=== PATIENT | female | born 1990 | race Hispanic/Latino ===

== ENCOUNTER 2017-09-11 08:35 | Outpatient (CLI) | payer OTHER | END 2017-09-11 08:36 | disposition home or self-care (01) | LOC: DTY/OP 08:35 | PROVIDERS: ATTEND Surgery | DX: E66.01 Morbid (severe) obesity due to excess calories (principal) | CPT/HCPCS: 97802 ==

== ENCOUNTER 2017-10-22 10:47 | Outpatient (CLI) | payer BC ==
--- NOTE | 2017-10-22 13:27 | RAD ---
CHEST TWO VIEWS: HISTORY: A 27-year-old female with a history of a preoperative evaluation. FINDINGS: Inspiration is somewhat less than optimal. Heart size is within normal limits. Large body habitus l owers the sensitivity of the study. No confluent pneumonia, overt edema, or pleural effusion. IMPRESSION: No acute intrathoracic disease. POS: [facility]
[2017-10-22 14:14] LABS: #Eosinphils 0.1 thou/uL (0.0-0.7); #Lymphocytes 2.6 thou/uL (1.20-3.40); #Monocytes 0.5 thou/uL (0.11-0.59); #Neutrophils 4.6 thou/uL (1.40-6.50); %Basophils 0.5 % (0.0-1.0); %Eosinophils 1.6 % (0.0-10.0); %Lymphocytes 33.1 % (21.0-51.0); %Neutrophils 58.9 % (42.0-75.0); BHCG - Serum Negative (NEGATIVE); Hemoglobin 13.5 g/dL (12.0-16.0); Mean Corpuscular HGB CONC 33.1 g/dL (32.0-36.0); Mean Corpuscular Hemoglobin 27.9 pg (27.0-31.0); Mean Corpuscular Volume 84.2 fl (81.0-99.0); Mean Platelet Volume 7.1 fL (7.4-10.4); Platelet Count 276 thou/uL (130-400); Pregs Control Background? CLEAR/WHITE (CLR/WHITE); Pregs Control Bar Appear? YES (CONTROL BAR); RBC Distribution Width 12.9 % (11.5-14.5); Red Blood Cell (RBC) Count 4.83 mill/uL (4.20-5.40); White Blood Cell (WBC) Count 7.7 thou/uL (4.8-10.8)
[2017-10-22 14:35] LABS: ALT (SGPT) 38 U/L (8-55); AST (SGOT) 29 U/L (5-34); Albumin 4.4 g/dL (3.5-5.0); Alkaline Phosphatase 66 U/L (40-150); Anion Gap 15 mmol/L (10-20); BUN (Urea Nitrogen) 12 mg/dL (7.0-18.7); Bilirubin, Direct 0.2 mg/dL (0.1-0.3); Bilirubin, Total 0.4 mg/dL (0.2-1.2); Calc. Creatinine Clearance 0 mL/min (70-130); Calcium 8.9 mg/dL (7.8-10.44); Carbon Dioxide 21 mmol/L (22-29); Chloride 107 mmol/L (98-107); Estimated GFR-MDRD Greater than 90; Globulin 3.3 g/dL (2.4-3.5); Glucose 74 mg/dL (70-105); Potassium 4.3 mmol/L (3.5-5.1); Protein, Total 7.7 g/dL (6.0-8.3); Sodium 139 mmol/L (136-145)
[2017-10-22 14:38] LABS: Hemoglobin A1c 5.5 % (4.0-6.0)
--- NOTE | 2017-10-22 16:41 | EKG ---
Test Reason : Blood Pressure : / mmHG Vent. Rate : 056 BPM Atrial Rate : 056 BPM P-R Int : 162 ms QRS Dur : 090 ms QT Int : 414 ms P-R-T Axes : 037 045 014 degrees QTc Int : 399 ms Sinus bradycardia with sinus arrhythmia Otherwise normal ECG No previous ECGs available Confirmed by DR. Dayanna JOSEPH ([id number]) on 10/22/2017 4:41:15 PM Referred By: SHONA Confirmed By:DR. Dayanna JOSEPH
== END 2017-10-22 10:48 | disposition home or self-care (01) ==
LOC: LABBT 10:47
PROVIDERS: ATTEND Surgery
DX: Z01.818 Encounter for other preprocedural examination (principal); E66.01 Morbid (severe) obesity due to excess calories
CPT/HCPCS: 71046; 80053; 80076; 83036; 84703; 85025; 93005; 93010

== ENCOUNTER 2017-10-22 11:30 | Inpatient (IN) | payer BC ==
[2017-10-22 11:10] VITALS: BMI 47.5
[2017-10-31] MEDS ORDERED: Scopolamine 1.5 mg/72 hour Patch ONE (07:35)
[2017-10-31] MEDS ORDERED: Heparin 5,000 UNITS/ML VIAL ONE (07:35)
[2017-10-31] MEDS ORDERED: Levofloxacin 500 mg/D5W 100 ml Premix Bag ONE (07:36)
[2017-10-31] MEDS ORDERED: Bupivacaine/Epinephrine 0.25% 30 ML VIAL ONE (09:08)
[2017-10-31] MEDS ORDERED: Fentanyl 100 MCG/2 ML VIAL ONE (09:27)
[2017-10-31] MEDS ORDERED: Midazolam HCl 2 mg/2 ml Vial ONE ×2 (09:27→09:28)
[2017-10-31] MEDS ORDERED: Lidocaine 1% (PF) 30 ML VIAL ONE (09:28)
[2017-10-31] MEDS ORDERED: HYDROmorphone 0.5 MG/0.5 ML SYRINGE ONE (09:28)
[2017-10-31] MEDS ORDERED: Ondansetron HCl/PF 4 MG/2 ML Vial ONE ×2 (09:51→14:19)
[2017-10-31] MEDS ORDERED: Naloxone HCl 0.4 mg/ml Vial IV PRN ×2 (10:33→10:44)
[2017-10-31] MEDS ORDERED: Zolpidem Tartrate 5 MG TAB PO PRN ×2 (10:33→10:44)
[2017-10-31] MEDS ORDERED: diphenhydrAMINE 25 MG CAP PO PRN ×2 (10:33→10:44)
[2017-10-31] MEDS ORDERED: HYDROmorphone 2 MG/ML VIAL SLOW IVP PRN (10:33)
[2017-10-31] MEDS ORDERED: HYDROmorphone 10 mg/100 ml CADD IVPB PRN (10:33)
[2017-10-31] MEDS ORDERED: Promethazine HCl 25 MG/ML VIAL IM PRN ×5 (10:33→10:57)
[2017-10-31] MEDS ORDERED: Promethazine HCl 25 MG/ML VIAL SLOW IVP PRN ×2 (10:33→10:44)
[2017-10-31] MEDS ORDERED: diphenhydrAMINE 50 MG/ML VIAL IVP PRN ×3 (10:33→10:57)
[2017-10-31] MEDS ORDERED: Ondansetron HCl/PF 4 MG/2 ML Vial IVP PRN ×5 (10:33→10:57)
[2017-10-31] MEDS ORDERED: diphenhydrAMINE 50 MG/ML VIAL IM PRN ×2 (10:33→10:44)
[2017-10-31] MEDS ORDERED: Communication Order-Pharmacy FS SCH ×2 (10:45)
[2017-10-31] MEDS ORDERED: hydrALAZINE 20 MG/ML VIAL SLOW IVP PRN (10:57)
[2017-10-31] MEDS ORDERED: Dextrose 5% in Water 1,000 ML IV PRN (10:57)
[2017-10-31] MEDS ORDERED: Dextrose 50% Abboject 50 ML SYRINGE SLOW IVP PRN (10:57)
[2017-10-31] MEDS ORDERED: Hydrocodone-Acetamin 15 ML UDCUP PO PRN (10:57)
[2017-10-31] MEDS ORDERED: Meperidine HCl/PF 25 MG/ML VIAL ONE (11:29)
--- NOTE | 2017-10-31 11:55 | OP ---
DATE OF PROCEDURE: 10/31/2017 PREOPERATIVE DIAGNOSIS: Morbid obesity. SURGEON: Jl Desai M.D. PROCEDURE PERFORMED: Laparoscopic sleeve gastrectomy and esophagogastroscopy. INDICATIONS: A 27-year-old female, morbidly obese, who has attempted multiple weight loss programs w [facility]. FINDINGS: A 38-Mongolian bougie used. PROCEDURE IN DETAIL: After informed consent was obtained, the patient was taken to the operating denise m and given general endotracheal anesthesia. She was placed in the supine position. The abdomen was prepped and draped in the usual fashion. Local anesthesia infiltrated subcutaneously and deep and a 12-mm incision was performed approximately 8 inches below the xiphoid slightly to the left. Veress needle inserted. Drop test performed. Pneumoperitoneum was created to a pressure of 15 mmHg. The p atient was placed in steep reverse Trendelenburg position. Nathansen liver retractor inserted. Left lobe of liver retracted superiorly. Pylorus identified. A 12-mm port placed on the right beneath i t and two 12s placed left subcostal. The omentum was taken off the greater curvature 5 cm from the p ylorus utilizing the LigaSure. Short gastrics divided with the LigaSure and left crura defined with the LigaSure. A 38-Mongolian bougie inserted, directed into the antrum. Then, the antrum was divided u tilizing a 60-mm green load stapler. Then, a gold load was used along the bougie and a series of judy es through the angle of His. Intraoperative endoscopy was performed. The video endoscope inserted u nder direct vision and advanced into the sleeve. Staple line inspected. There was no bleeding. Sta ple line then tested by inflating the new stomach with pressurized air under water. There was no air leak. Stomach decompressed. Scope removed. The remnant stomach removed from the abdomen through t he left lateral port site. The fascia closed with 0 Vicryl suture and the GraNee needle. Trocars an d retractors removed. Skin closed with interrupted 4-0 Rapide. Dermabond applied. The patient tolbobo rated the procedure well and was transferred to recovery in good condition. Sponge and needle count verified correct x2.
[2017-10-31] MEDS ORDERED: Acetaminophen 1,000 MG in Premix Bag 1 BAG IVPB SCH (12:00)
[2017-10-31] MEDS ORDERED: D5 1/2 NS w/20 mEq KCL 1,000 ML ONE (12:24)
[2017-10-31] MEDS ORDERED: Glycopyrrolate 0.2 MG/ML 5 ML SYRINGE ONE (14:19)
[2017-10-31] MEDS ORDERED: Lidocaine 1% PF 5 ML VIAL ONE (14:19)
[2017-10-31] MEDS ORDERED: PROPOFOL 200 MG/20 ML VIAL ONE (14:19)
[2017-10-31] MEDS ORDERED: Dexamethasone 20 MG/5 ML VIAL ONE (14:19)
[2017-10-31] MEDS ORDERED: PHENYLEPHRINE-NS 100 MCG/ML 10 ML SYRINGE ONE (14:19)
[2017-10-31] MEDS ORDERED: Ketorolac Tromethamine 30 MG/ML VIAL ONE (14:19)
[2017-10-31] MEDS: D5 1/2 NS w/20 mEq KCL 1,000 ML IV SCH (16:55)
[2017-10-31] MEDS: Acetaminophen 1,000 MG in Premix Bag 1 BAG IVPB SCH ×2 (16:56→19:02)
[2017-10-31] MEDS: Ketorolac Tromethamine 30 MG/ML VIAL IVP SCH ×2 (16:56→19:02)
[2017-11-01] MEDS: Acetaminophen 1,000 MG in Premix Bag 1 BAG IVPB SCH ×3 (00:19→13:24)
[2017-11-01] MEDS: Ketorolac Tromethamine 30 MG/ML VIAL IVP SCH ×3 (00:20→13:23)
[2017-11-01] MEDS: D5 1/2 NS w/20 mEq KCL 1,000 ML IV SCH ×3 (00:23→13:24)
[2017-11-01 05:57] LABS: #Lymphocytes 1.7 thou/uL (1.20-3.40); #Monocytes 0.6 thou/uL (0.11-0.59); #Neutrophils 10.2 thou/uL (1.40-6.50); %Basophils 0.1 % (0.0-1.0); %Lymphocytes 13.7 % (21.0-51.0); %Neutrophils 81.1 % (42.0-75.0); Hemoglobin 12.6 g/dL (12.0-16.0); Mean Corpuscular HGB CONC 33.6 g/dL (32.0-36.0); Mean Corpuscular Hemoglobin 28.5 pg (27.0-31.0); Mean Corpuscular Volume 84.6 fl (81.0-99.0); Mean Platelet Volume 6.8 fL (7.4-10.4); Platelet Count 266 thou/uL (130-400); Red Blood Cell (RBC) Count 4.44 mill/uL (4.20-5.40); White Blood Cell (WBC) Count 12.5 thou/uL (4.8-10.8)
[2017-11-01 06:27] LABS: Anion Gap 10 mmol/L (10-20); BUN (Urea Nitrogen) 6 mg/dL (7.0-18.7); Calc. Creatinine Clearance 306 mL/min (70-130); Calcium 8.8 mg/dL (7.8-10.44); Carbon Dioxide 23 mmol/L (22-29); Chloride 106 mmol/L (98-107); Estimated GFR-MDRD Greater than 90; Glucose 120 mg/dL (70-105); Potassium 4.1 mmol/L (3.5-5.1); Sodium 135 mmol/L (136-145)
[2017-11-01] MEDS ORDERED: Enoxaparin Sodium 40 MG/0.4 ML SYRINGE SC SCH (09:00)
[2017-11-01] MEDS ORDERED: Pantoprazole 40 MG VIAL IVP SCH (09:00)
--- NOTE | 2017-11-01 09:38 | RAD ---
ESOPHAGRAM: Date: 11/01/17 HISTORY: Obesity. Bariatric surgery. FINDINGS/IMPRESSION: Single column contrast evaluation shows postoperative changes consistent with recent gastric sleeve p rocedure. Minimal delay in passage of contrast is consistent with mild postoperative swelling. There is no evidence of obstruction or leak. POS: [facility]
--- NOTE | 2017-11-01 11:27 | DIS ---
DISCHARGE DIAGNOSIS: Morbid obesity. PROCEDURES DURING ADMISSION: Laparoscopic sleeve gastrectomy, intraoperative esophagogastroscopy, po stoperative Gastrografin swallow. HOSPITAL COURSE: The patient was admitted, taken to the operating room where she underwent sleeve ga strectomy. Postoperatively, has done well. She is tolerating liquids well. X-ray was fine. She is discharged home in good condition on hydrocodone, Zofran. She will follow up with me in 2 weeks.
[2017-11-01 15:46] VITALS: BP 115/74; TEMP 98
== END 2017-11-01 15:50 | disposition home or self-care (01) | DRG 621 ==
LOC: SURG A 10-31 06:48 → SURG B 10-31 13:58
PROVIDERS: ADMIT Surgery; ATTEND Surgery
PROC: 0DB64Z3 Excision of Stomach, Percutaneous Endoscopic Approach, Vertical (ICD-10-PCS; principal; 2017-10-31)
DX: E66.01 Morbid (severe) obesity due to excess calories (principal); Z68.42 Body mass index [BMI] 45.0-49.9, adult
CPT/HCPCS: 36415; 74241; 80048; 85025; 88307; 88312; 94760; C9113; J0131; J1100; J1170; J1644; J1650; J1885; J1956; J2001; J2175; J2250; J2405; J2704; J3010

== ENCOUNTER 2018-08-04 21:31 | Emergency (ER) | payer BC ==
[2018-08-04] MEDS ORDERED: Ketorolac Tromethamine 30 MG/ML VIAL ONE (22:46)
[2018-08-04] MEDS ORDERED: Ondansetron PF 4 MG/2 ML Vial ONE (22:46)
[2018-08-04] MEDS ORDERED: Loperamide HCl 2 MG CAP ONE (22:46)
[2018-08-04 22:48] LABS: #Basophils 0.1 thou/uL (0.0-0.2); #Eosinphils 0.2 thou/uL (0.0-0.7); #Lymphocytes 1.7 thou/uL (1.20-3.40); #Monocytes 0.7 thou/uL (0.11-0.59); #Neutrophils 11.7 thou/uL (1.40-6.50); %Basophils 0.6 % (0.0-1.0); %Eosinophils 1.1 % (0.0-10.0); %Lymphocytes 11.7 % (21.0-51.0); %Neutrophils 81.7 % (42.0-75.0); Hemoglobin 12.9 g/dL (12.0-16.0); Mean Corpuscular HGB CONC 34.1 g/dL (32.0-36.0); Mean Corpuscular Hemoglobin 28.6 pg (27.0-31.0); Mean Corpuscular Volume 83.9 fL (78.0-98.0); Mean Platelet Volume 8.1 fL (7.4-10.4); Platelet Count 221 thou/uL (130-400); RBC Distribution Width 11.7 % (11.5-14.5); Red Blood Cell (RBC) Count 4.52 mill/uL (4.20-5.40); White Blood Cell (WBC) Count 14.3 thou/uL (4.8-10.8)
[2018-08-04 22:58] LABS: ALT (SGPT) 100 U/L (8-55); AST (SGOT) 233 U/L (5-34); Alkaline Phosphatase 109 U/L (40-150); Anion Gap 14 mmol/L (10-20); BUN (Urea Nitrogen) 11 mg/dL (7.0-18.7); Bilirubin, Total 0.9 mg/dL (0.2-1.2); Calc. Creatinine Clearance 0 mL/min (70-130); Calcium 8.8 mg/dL (7.8-10.44); Carbon Dioxide 22 mmol/L (22-29); Chloride 107 mmol/L (98-107); Estimated GFR-MDRD Greater than 90; Glucose 91 mg/dL (70-105); Lipase 34 U/L (8-78); Potassium 3.8 mmol/L (3.5-5.1); Sodium 139 mmol/L (136-145)
[2018-08-04 23:45] LABS: Bilirubin Negative (Negative); Blood, Urine Negative (Negative); Clarity Clear (Clear); Glucose, Urine (Dipstick) Negative (Negative); Leukocyte Negative (Negative); Nitrite Negative (Negative); Protein, Urine (Dipstick) Negative (Neg-Trace); Specific Gravity, Urine 1.015 (1.005-1.030); Urobilinogen > or = 8.0 mg/dL (0.2-1.0); pH, Urine 8.5 (5.0-9.0)
[2018-08-04 23:48] LABS: Pregnancy Test - Urine (BHCG) Negative (Negative); Pregu Control Background? CLEAR/WHITE (CLR/WHITE); Pregu Control Bar Appear? YES (CONTROL BAR); Specific Gravity 1.015 (1.002-1.036)
--- NOTE | 2018-08-05 08:36 | CT ---
PRELIMINARY REPORT/[facility]/EMERGENTY AFTER-HOURS PROCEDURE CT Abdomen and Pelvis With Contrast EXAM DATE/TIME: 08/04/2018 11:50 PM CLINICAL HISTORY: 27 years old, female; Pain; Abdominal pain; Patient HX: F27 presents to ed C/O n/v//d, sudden sxs ons et since noon today, after eating lunch (bbq). PT reports since SX onset, 1 episode of diarrhea follo wed by multiple episodes of n/v. Family reports PT syncopized briefly (few seconds) while in the shower. PT reports she hit her head at this time and is complaining of headache. PT PT denies uti sxs . Pmh includes gastric sleeve surgery in october of 2017, no complications. TECHNIQUE: Axial computed tomography images of the abdomen and pelvis with intravenous contrast. Coronal reformatted images were created and reviewed. CONTRAST: 75 ml of [id number] administered intravenously. COMPARISON: No relevant prior studies available. FINDINGS: Lower thorax: No acute findings. ABDOMEN: Liver: Normal. No mass. Gallbladder and bile ducts: Normal. No calcified stones. No ductal dilation. Pancreas: Normal. No ductal dilation. Spleen: Normal. No splenomegaly. Adrenals: Normal. No mass. Kidneys and ureters: Normal. No hydronephrosis. Stomach and bowel: No evidence of bowel obstruction. Surgical sutures are present along the stomach. Appendix: Appendix - visualized portions appear normal. PELVIS: Bladder: Unremarkable as visualized. Reproductive: Uterus appears within normal limits. Ovoid 1.5 cm hypodensity in right ovary. ABDOMEN and PELVIS: Intraperitoneal space: Surgical clip in left pelvis. Bones/joints: No acute fracture. No dislocation. Soft tissues: Unremarkable. Vasculature: Normal. No abdominal aortic aneurysm. Lymph nodes: Normal. No enlarged lymph nodes. IMPRESSION: 1. No evidence of bowel obstruction. 2. Ovoid 1.5 cm right ovarian cyst. Thank you for allowing us to participate in the care of your patient. Dictated and Authenticated by: Santiago Garcia MD 08/05/2018 1:21 AM Central Time ([place] & [place]) FINAL REPORT ABDOMEN CT WITH CONTRAST PELVIC CT WITH CONTRAST: Date: 08/04/18 HISTORY: Abdominal pain and vomiting. COMPARISON: None. FINDINGS: This report is in agreement with the preliminary report by [facility]. No evidence of bowel obstruction. Th ere is a normal caliber appendix. Nonspecific mildly enlarged lymph nodes in the right lower quadrant . Correlate for focal mesenteric lymphadenitis. Hypodensity in the right adnexa, likely representing a dominant follicle. POS: [facility]
== END 2018-08-05 01:42 | disposition home or self-care (01) ==
LOC: SCSER 21:31
DX: E86.0 Dehydration (principal); R55 Syncope and collapse; R11.2 Nausea with vomiting, unspecified; R10.11 Right upper quadrant pain
CPT/HCPCS: 74177; 80053; 81003; 81025; 83690; 85025; 93005; 96361; 96374; 96375; J1885; J2405

== ENCOUNTER 2018-08-15 05:53 | Day surgery (SDC) | payer BC ==
[2018-08-14 17:34] VITALS: BMI 35.2
[2018-08-15] MEDS ORDERED: cefOXitin Sodium/Dextrose,Iso 2 GM in Premix Bag 1 BAG IVPB SCH (06:30)
[2018-08-15 06:33] LABS: #Basophils 0.1 thou/uL (0.0-0.2); #Eosinphils 0.2 thou/uL (0.0-0.7); #Lymphocytes 1.9 thou/uL (1.20-3.40); #Monocytes 0.8 thou/uL (0.11-0.59); #Neutrophils 6.6 thou/uL (1.40-6.50); %Basophils 0.7 % (0.0-1.0); %Lymphocytes 19.7 % (21.0-51.0); %Neutrophils 69.6 % (42.0-75.0); Mean Corpuscular HGB CONC 33.1 g/dL (32.0-36.0); Mean Corpuscular Hemoglobin 29.3 pg (27.0-31.0); Mean Corpuscular Volume 88.6 fL (78.0-98.0); Mean Platelet Volume 6.9 fL (7.4-10.4); Platelet Count 259 thou/uL (130-400); Red Blood Cell (RBC) Count 4.42 mill/uL (4.20-5.40); White Blood Cell (WBC) Count 9.5 thou/uL (4.8-10.8)
[2018-08-15 06:40] LABS: BHCG - Serum Negative (NEGATIVE); Pregs Control Background? CLEAR/WHITE (CLR/WHITE); Pregs Control Bar Appear? YES (CONTROL BAR)
[2018-08-15 06:55] LABS: ALT (SGPT) 444 U/L (8-55); ALT (SGPT) 452 U/L (8-55); AST (SGOT) 605 U/L (5-34); AST (SGOT) 618 U/L (5-34); Albumin 4.1 g/dL (3.5-5.0); Alkaline Phosphatase 140 U/L (40-150); Alkaline Phosphatase 142 U/L (40-150); Anion Gap 13 mmol/L (10-20); BUN (Urea Nitrogen) 8 mg/dL (7.0-18.7); Bilirubin, Direct 2.7 mg/dL (0.1-0.3); Bilirubin, Total 4.1 mg/dL (0.2-1.2); Calc. Creatinine Clearance 204 mL/min (70-130); Calcium 9.1 mg/dL (7.8-10.44); Carbon Dioxide 21 mmol/L (22-29); Chloride 108 mmol/L (98-107); Estimated GFR-MDRD Greater than 90; Glucose 84 mg/dL (70-105); Potassium 3.8 mmol/L (3.5-5.1); Protein, Total 6.9 g/dL (6.0-8.3); Protein, Total 7.1 g/dL (6.0-8.3); Sodium 138 mmol/L (136-145)
[2018-08-15] MEDS ORDERED: Bupivacaine HCl 0.5%/Epinephrine 1:200,000/PF 30 ml Vial ONE (08:45)
[2018-08-15] MEDS ORDERED: Fentanyl 100 MCG/2 ML VIAL ONE ×2 (08:50→10:19)
[2018-08-15] MEDS ORDERED: Promethazine HCl 25 MG/ML VIAL SLOW IVP PRN (08:57)
[2018-08-15] MEDS ORDERED: Iothalamate Meglumine 60% 50 ML VIAL FS ONE (09:16)
--- NOTE | 2018-08-15 10:38 | OP ---
DATE OF PROCEDURE: 08/15/2018 PREOPERATIVE DIAGNOSIS: Symptomatic cholelithiasis with elevated liver function. PROCEDURE PERFORMED: Laparoscopic cholecystectomy with intraoperative cholangiogram. INDICATIONS: A 28-year-old female, who has been having episodic right upper quadrant pain radiating to back, associated with nausea. Ultrasound showed cholelithiasis. Her LFTs were elevated. FINDINGS: Normal cholangiogram. No filling defects, free flow into the duodenum, slightly thickened gallbladder wall. DESCRIPTION OF PROCEDURE: After informed consent was obtained, the patient was taken to the operating room and given general endotracheal anesthesia and placed in the supine position. Abdomen was prepped and draped in usual fashion. Local anesthesia was infiltrated subcutaneously and deep. Subumbilical incision was performed. Subcu was divided sharply. The fascia was grasped with two stay sutures of 0 Vicryl placed in each side of midline. Midline incised. Digital palpation revealed no local adhesions. A blunt 10/12 trocar was inserted. Pneumoperitoneum created to a pressure of 15 mmHg. A 0-degree laparoscope was inserted under direct vision. Three 5 mm ports were placed subcostally. Gallbladder was grasped and advanced superiorly. Peritoneum lysed distally, revealed cystic duct artery in critical view. A clip was placed at the base of the gallbladder on the cystic duct and an intraoperative cholangiogram was performed utilizing the Arrow cholangiocatheter and fluoroscopy. This showed free flow into the duodenum, no filling defects. The duct was triply ligated with hemoclips and divided. The artery was triply ligated with hemoclips and divided. The gallbladder was removed from its fossa utilizing electrocautery, removed from the abdomen through the umbilical port. Hemostasis assured. Trocars and retractors were removed. The fascia was closed with interrupted 0 Vicryl suture. The skin was closed with interrupted 4-0 Rapide. Dermabond was applied. The patient tolerated the procedure well, transferred to Recovery in good condition. Sponge and needle count verified correct x2. Job ID: [id number]
--- NOTE | 2018-08-15 12:57 | RAD ---
CHOLANGIOGRAM DURING SURGERY: Comparison: CT abdomen/pelvis 08-04-18 History: Cholelithiasis, status post cholecystectomy. FINDINGS/IMPRESSION: A single intraoperative fluoroscopic view from a cholangiogram taken during surgery was submitted for interpretation. Contrast was seen in the common bile duct and duodenum as well as the cystic duct. N o obvious filling defects are appreciated. POS: [facility]
[2018-08-15] MEDS ORDERED: Dexamethasone 20 MG/5 ML VIAL ONE (15:57)
[2018-08-15] MEDS ORDERED: Glycopyrrolate 0.2 MG/ML 5 ML SYRINGE ONE (15:57)
[2018-08-15] MEDS ORDERED: Ketorolac Tromethamine 30 MG/ML VIAL ONE (15:57)
[2018-08-15] MEDS ORDERED: Rocuronium Bromide 10 MG/ML (10ML VIAL) ONE (15:57)
[2018-08-15] MEDS ORDERED: Lidocaine 1% PF 5 ML VIAL ONE (15:57)
[2018-08-15] MEDS ORDERED: Metoclopramide HCl 10 MG/2 ML VIAL ONE (15:57)
[2018-08-15] MEDS ORDERED: Ondansetron PF 4 MG/2 ML Vial ONE (15:57)
[2018-08-15] MEDS ORDERED: ePHEDrine 50 MG/ML VIAL ONE (15:57)
[2018-08-15] MEDS ORDERED: PROPOFOL 200 MG/20 ML VIAL ONE (15:57)
== END 2018-08-15 12:20 | disposition home or self-care (01) ==
LOC: SDC 05:53
PROVIDERS: ATTEND Surgery
PROC: BF101ZZ Fluoroscopy of Bile Ducts using Low Osmolar Contrast (ICD-10-PCS; principal; 2018-08-15)
PROC: 0FT44ZZ Resection of Gallbladder, Percutaneous Endoscopic Approach (ICD-10-PCS; principal; 2018-08-15)
DX: K80.10 Calculus of gallbladder with chronic cholecystitis without obstruction (principal); J45.909 Unspecified asthma, uncomplicated; Z79.899 Other long term (current) drug therapy; Z88.0 Allergy status to penicillin; Z91.02 Food additives allergy status; Z98.84 Bariatric surgery status
CPT/HCPCS: 36415; 47532; 80053; 84703; 85025; 88304; J0670; J1100; J1610; J1885; J2001; J2405; J2704; J2765; J3010; J3490; Q9961